=== PATIENT | female | born 2000 | race Caucasian/White ===

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

== ENCOUNTER 2024-06-09 04:18 | Day surgery (SDC) | payer OTHER ==
[2024-06-07 11:35] VITALS: BMI 36.6
[2024-06-09] MEDS ORDERED: INDOCYANINE GREEN 25 MG/10 ML VIAL IVPUSH ONE (07:20)
[2024-06-09] MEDS ORDERED: BUPIVACAINE HCL/PF 0.25% (2.5MG/ML) 10 ML VIAL ONE (07:20)
[2024-06-09] MEDS ORDERED: cefOXitin SODIUM 2 GM VIAL (RESTRICTED TO ID) IVPB ONE (07:20)
[2024-06-09] MEDS ORDERED: HEPARIN NA (PORCINE) 5,000 UNITS/ML 1ML VIAL ONE (07:20)
[2024-06-09] MEDS ORDERED: ROCURONIUM BROMIDE 50 MG/5 ML SYRINGE ONE (07:38)
[2024-06-09] MEDS ORDERED: PROPOFOL 20 ML ONE (07:38)
[2024-06-09] MEDS ORDERED: MIDAZOLAM HCL 2 MG/2 ML SINGLE DOSE VIAL ONE (07:38)
[2024-06-09] MEDS ORDERED: HYDROmorphone HCl 2 MG/ML VIAL ONE (08:12)
[2024-06-09] MEDS: cefOXitin SODIUM 2 GM VIAL (RESTRICTED TO ID) IVPB ONE ×2 (08:14)
[2024-06-09] MEDS: BUPIVACAINE HCL/PF 0.25% (2.5MG/ML) 10 ML VIAL IJ ONE ×2 (08:28)
[2024-06-09] MEDS ORDERED: LIDOCAINE HCL/PF 2% SDV 5ML VIAL ONE (08:59)
[2024-06-09] MEDS ORDERED: ACETAMINOPHEN INJECTION 100 ML ONE ×2 (09:00→10:41)
[2024-06-09] MEDS ORDERED: SUGAMMADEX SODIUM 200 MG/2 ML VIAL ONE (09:10)
[2024-06-09] MEDS ORDERED: ONDANSETRON 4 MG/2 ML VIAL ONE ×2 (09:10→14:09)
[2024-06-09] MEDS ORDERED: LACTATED RINGERS SOLUTION 1,000 ML IV SCH (09:30)
[2024-06-09] MEDS ORDERED: HYDROmorphone HCL CARPU-JECT 2 MG/1 ML DISP.SYRIN ONE (10:04)
[2024-06-09] MEDS: HYDROmorphone HCl 2 MG/ML VIAL IVPB PRN (10:04)
[2024-06-09] MEDS ORDERED: ACETAMINOPHEN 1000 MG/100 ML BAG IVPB ONE (11:02)
[2024-06-09] MEDS ORDERED: oxyCODONE HCL 5 MG TABLET ONE (11:54)
[2024-06-09] MEDS: oxyCODONE HCL 5 MG TABLET PO PRN (11:58)
[2024-06-09 12:20] VITALS: RESP 20
[2024-06-09] MEDS: ONDANSETRON 4 MG/2 ML VIAL IVPUSH PRN (14:15)
[2024-06-09 15:57] VITALS: BP 134/80; PULSE 62; TEMP 97.3
[2024-06-09] MEDS ORDERED: ACETAMINOPHEN 500 MG TABLET (FP) ONE (16:46)
[2024-06-09] MEDS: ACETAMINOPHEN 500 MG TABLET (FP) PO ONE (16:53)
== END 2024-06-09 17:10 | disposition home or self-care (01) ==
LOC: JASU-SURG 04:18
PROVIDERS: ATTEND Surgery
PROC: 8E0W4CZ Robotic Assisted Procedure of Trunk Region, Percutaneous Endoscopic Approach (ICD-10-PCS; 2024-06-09)
PROC: 0FT44ZZ Resection of Gallbladder, Percutaneous Endoscopic Approach (ICD-10-PCS; principal; 2024-06-09 08:00)
DX: K80.20 Calculus of gallbladder without cholecystitis without obstruction (principal)
CPT/HCPCS: 47562; S2900; 81025; 82962; 88304-TC; 94760; J0131; J1644